=== PATIENT | female | born 1990 | race Caucasian/White ===

== ENCOUNTER 2016-07-16 21:45 | Emergency (ER) | payer OTHER ==
[2016-07-16 22:31] LABS: % IMMATURE GRANULYOCYTES 0.2 % (0.0-1.1); ABSOLUTE IMMATURE GRANULOCYTES 0.02 10^3/uL (0.00-0.10); ADD DIFF? NO; ADD MORPH? NO; ADD SCAN? NO; ATYPICAL LYMPHOCYTE FLAG 10 (0-99); FRAGMENT RBC FLAG 0 (0-99); HEMATOCRIT 35.4 % (38.0-47.0); HEMOGLOBIN 12.1 g/dL (12.6-16.3); LEFT SHIFT FLG 0 (0-99); LIPEMIA HEMOLYSIS FLAG 90 (0-99); MEAN CELL HEMOGLOBIN 29.4 pg (27.9-34.1); MEAN CELL HEMOGLOBIN CONCENTR. 34.2 g/dL (32.4-36.7); MEAN CELL VOLUME 85.9 fL (81.5-99.8); MEAN PLATELET VOLUME 8.7 fL (8.7-11.7); PLATELET CLUMPS FLAG 10 (0-99); PLATELET COUNT 271 10^3/uL (150-400); RED BLOOD CELL COUNT 4.12 10^6/uL (4.18-5.33); RED CELL DISTRIBUTION WIDTH 13.1 % (11.5-15.2)
[2016-07-16 23:03] LABS: ANION GAP 13 mEq/L (8-16); CALCIUM 9.4 mg/dL (8.5-10.4); CARBON DIOXIDE 24 mEq/l (22-31); CHLORIDE 103 mEq/L (97-110); CREATININE 0.9 mg/dL (0.6-1.0); GLOMERULAR FILTRATION RATE > 60; GLUCOSE 96 mg/dL (70-100); POTASSIUM 3.4 mEq/L (3.5-5.2); SODIUM 140 mEq/L (134-144)
--- NOTE | 2016-07-16 23:38 | EDPHY ---
HPI/HX/ROS/PE/MDM Narrative: Chief complaint: Vaginal bleeding, positive test HPI: 26-year-old female presenting with 2 weeks of vaginal bleeding. She has an IUD in place which was placed 3 years ago. Her periods are irregular. Patient states she has been having daily bleeding soaking a couple of pads a day. She has had some mild low pelvic cramping but no significant pain. No fevers or chills. No nausea or vomiting. She does state that today she checked a test which was positive. No lightheadedness or passing out. Denies other medical problems. ROS: 10 point Review of Systems is negative except as noted in the HPI. Physical exam: Gen: Awake, Alert, No Distress HEENT: Nose: no rhinorrhea Eyes: PERRLA, EOMI Mouth: Moist mucosa Neck: Supple, no JVD Chest: nontender, lungs clear to auscultation Heart: S1, S2 normal, no murmur Abd: Soft, non-tender, no guarding Back: no CVA tenderness, no midline tenderness Ext: no edema, non-tender Skin: no rash Neuro: CN II-XII intact, Sensation grossly intact, Strength 5/5 in bilateral upper and lower extremities ED Course: Pelvic ultrasound interpreted by Dr. Wili Chen: IUD in good position, no intrauterine gestational sac. There is a complex soft tissue with clot near the fundus with complex free fluid. There is a tubular structure in the right adnexa measuring 2.5 x 2.5 x 5 cm. There is no embryo noted. Impression: Ectopic . Pt hemodynamically normal. She is comfortable without complaint at this time. I have discussed the ultrasound findings with Timothy Barnett, OFFICE SUPPORT ASSISTANT. She feels the patient is an excellent candidate for methotrexate therapy. I have discussed with pharmacy and ordered based on her body surface area of 1.53 meters squared. I have also added on LFTs. Rh is ordered as well, she is Rh positive. Plan will be to discharge the patient to home after the methotrexate IM. Dr. Timothy Barnett will see her tomorrow at noon at the [facility]. Patient will return for any worsening of symptoms or any concerns. - Data Points Laboratory Results: Laboratory Results 07/16/16 22:25 07/16/16 22:25 01/04/17 01/03/17 00:25 22:25 WBC 8.84 10^3/uL (3.80-9.50) RBC 4.12 L 10^6/uL (4.18-5.33) Hgb 12.1 L g/dL (12.6-16.3) Hct 35.4 L % (38.0-47.0) MCV 85.9 fL (81.5-99.8) MCH 29.4 pg (27.9-34.1) MCHC 34.2 g/dL (32.4-36.7) RDW 13.1 % (11.5-15.2) Plt Count 271 10^3/uL (150-400) MPV 8.7 fL (8.7-11.7) Neut % (Auto) 65.6 % (39.3-74.2) Lymph % (Auto) 25.7 % (15.0-45.0) Weber % (Auto) 6.9 % (4.5-13.0) Eos % (Auto) 1.0 % (0.6-7.6) Baso % (Auto) 0.6 % (0.3-1.7) Nucleat RBC Rel Count 0.0 % (0.0-0.2) Absolute Neuts (auto) 5.80 10^3/uL (1.70-6.50) Absolute Lymphs (auto) 2.27 10^3/uL (1.00-3.00) Absolute Monos (auto) 0.61 10^3/uL (0.30-0.80) Absolute Eos (auto) 0.09 10^3/uL (0.03-0.40) Absolute Basos (auto) 0.05 10^3/uL (0.02-0.10) Absolute Nucleated RBC 0.00 10^3/uL (0-0.01) Immature Gran % 0.2 % (0.0-1.1) Immature Gran # 0.02 10^3/uL (0.00-0.10) Sodium 140 mEq/L (134-144) Potassium 3.4 L mEq/L (3.5-5.2) Chloride 103 mEq/L (97-110) Carbon Dioxide 24 mEq/l (22-31) Anion Gap 13 mEq/L (8-16) BUN 14 mg/dL (7-23) Creatinine 0.9 mg/dL (0.6-1.0) Estimated GFR > 60 Glucose 96 mg/dL (70-100) Calcium 9.4 mg/dL (8.5-10.4) Total Bilirubin 0.5 mg/dL (0.1-1.4) Conjugated Bilirubin 0.2 mg/dL (0.0-0.5) Unconjugated Bilirubin 0.3 mg/dL (0.0-1.1) AST 31 IU/L (14-46) ALT 37 IU/L (9-52) Alkaline Phosphatase 51 IU/L (38-126) Total Protein 7.3 g/dL (6.3-8.2) Albumin 4.3 g/dL (3.5-5.0) Beta HCG, Quant 248.04 H mIU/mL (0-4.83) Patient ABO/Rh Pending General Time Seen by Provider: 07/16/16 22:59 Initial Vital Signs: Initial Vital Signs Heart Rate 90 07/16/16 21:48 Respiratory Rate 20 07/16/16 21:48 Blood Pressure 119/72 07/16/16 21:48 O2 Sat (%) 97 07/16/16 21:48 O2 Delivery Mode Room Air Allergies/Adverse Reactions: No Known Allergies Allergy (Unverified 03/16/15 20:35) Home Medications: Medication Instructions Recorded Hydrocodone/APAP 5/325 [Hammond 1 - 2 tab PO Q4 PRN #45 tab 03/20/15 5/325 (*)] Sennosides/Docusate Sodium 1 - 2 tab PO BID #30 tab 03/20/15 [Senokot-S] Departure - Departure Disposition: Home, Routine, Self-Care Clinical Impression: Ectopic Condition: Good Instructions: Ectopic (ED) Additional Instructions: Follow up with Dr. Timothy Hopkins at the [facility] tomorrow at noon without fail. Return to the emergency department for increasing pain, nausea, vomiting, lightheadedness, fainting, or any other concerns. Referrals: Cuca Fan MD [Medical Doctor] - As per Instructions
--- NOTE | 2016-07-17 00:19 | US ---
First Trimester Obstetric Ultrasound July 17, 2016 Indication: Positive test. Bleeding for [address] Comparison: None Technique: Transabdominal and transvaginal imaging. Findings: Small to moderate volume of complex fluid resides in the cul-de-sac and right hemipelvis. Amorphous avascular soft tissue resides in the right adnexa. Transvaginal imaging reveals tubular sha ped avascular soft tissue between the right ovary and the uterus measuring 2.6 x 2.5 cm in the axial plane x 5.3 cm in length in the long axis plane. The tubular soft tissue may represent a combination of blood products and ectopic in the fallopian tube. No well defined extrauterine gestation al sac or embryo. The endometrial cavity contains a well-positioned intrauterine device. Endometrial lining is thin (3 to 4 mm). No intrauterine gestational sac. Both ovaries are well visualized and normal with appropriate blood flow. The right ovary measures 3.1 x 2.1 x 2.0 cm. The left ovary measures 3.0 x 2.7 x 1.3 cm. The corpus luteum in the left ovary giuseppe ures 1.5 cm. Impression: 1. Suspect right adnexa ectopic , potentially in the right fallopian tube, with associated h emoperitoneum. 2. Well-positioned intrauterine device. No intrauterine . Comment: Results were discussed with Dr. Ocampo at 12:00 a.m. July 17, 2016
[2016-07-17] MEDS ORDERED: METHOTREXATE 25 MG/ML SYRINGE IM ONE (00:29)
[2016-07-17 00:35] LABS: ALBUMIN 4.3 g/dL (3.5-5.0); BILIRUBIN,TOTAL 0.5 mg/dL (0.1-1.4); BILIRUBIN-CONJUGATED 0.2 mg/dL (0.0-0.5); BILIRUBIN-UNCONJUGATED 0.3 mg/dL (0.0-1.1); TOTAL PROTEIN 7.3 g/dL (6.3-8.2)
[2016-07-17 01:10] VITALS: BP 109/71; PULSE 82; RESP 17; TEMP 98.6; O2SAT 96
== END 2016-07-17 01:08 | disposition home or self-care (01) ==
DX: O00.90 Unspecified ectopic pregnancy without intrauterine pregnancy (principal); Z3A.01 Less than 8 weeks gestation of pregnancy
CPT/HCPCS: J9250